=== PATIENT | female | born 1975 | race Hispanic/Latino ===

== ENCOUNTER 2021-03-08 06:25 | Day surgery (SDC) | payer OTHER ==
[2021-03-04 16:13] VITALS: BP 119/60
[2021-03-04 16:32] LABS: BASOPHILS % (AUTO) 0.3 % (0.0-5.0); EOSINOPHILS % (AUTO) 2.3 % (0.0-8.0); HEMATOCRIT 34.8 % (36-48); LYMPHOCYTES % (AUTO) 28.5 % (21.0-51.0); MEAN CORPUSCULAR VOLUME 87.9 fL (79-99); MONOCYTES % (AUTO) 7.2 % (3.0-13.0); NEUTROPHILS % (AUTO) 61.3 % (40.0-77.0); PLATELET COUNT (AUTO) 189 K/uL (130-400); RED BLOOD CELL COUNT(AUTO) 3.96 MIL/uL (4.00-5.50); RED CELL DISTRIBUTION WIDTH 13.5 % (11.0-15.5); WHITE BLOOD COUNT (AUTO) 7.2 K/uL (4.8-10.8)
[2021-03-08] VITALS (17 sets, daily range): BP systolic 102–120; BP diastolic 66–79
[~2021-03-08] VITALS: Ht 160 cm; Wt 69.4 kg
[~2021-03-08 06:25] MED LIST: LACTATED RINGERS 1000ML 1,000 ML IV SCH
[2021-03-08] MEDS ORDERED: SUCCINYLCHOLINE 200MG/10ML SYR ONE (08:37)
[2021-03-08] MEDS ORDERED: LIDOCAINE PF 100MG/5ML (2%) SYRINGE 5ML ONE (08:37)
[2021-03-08] MEDS ORDERED: ROCURONIUM 10MG/1ML SYR 10 MG/ML ML ONE (08:38)
[2021-03-08] MEDS ORDERED: ONDANSETRON 4MG INJ ONE ×2 (08:38→10:05)
[2021-03-08] MEDS ORDERED: PROPOFOL 10 MG/ML 20ML VIAL IV ONE (08:38)
[2021-03-08] MEDS ORDERED: MIDAZOLAM HCL 1 MG/ML 2ML VIAL ONE (08:38)
[2021-03-08] MEDS ORDERED: FENTANYL CITRATE PF 50 MCG/1 ML 2ML VIAL ONE (08:38)
[2021-03-08] MEDS ORDERED: MEPERIDINE-PF 25 MG/ML SYG ONE (09:44)
[2021-03-08] MEDS ORDERED: METOCLOPRAMIDE 10 MG/2 ML VIAL ONE (10:54)
== END 2021-03-08 11:45 | disposition home or self-care (01) ==
LOC: DAH 06:25
PROVIDERS: ATTEND Obstetrics & Gynecology
DX: N84.1 Polyp of cervix uteri (principal); Z20.822 Contact with and (suspected) exposure to COVID-19; L72.0 Epidermal cyst; Z79.899 Other long term (current) drug therapy; Z98.890 Other specified postprocedural states
CPT/HCPCS: 11422; 36415 ×2; 57520; 84703; 85025; 86850 ×2; 86900 ×2; 86901 ×2; 87635; A4215; A4221; A4222; A4223; A4351; A4649; A4663; A6260; C9803; J0330; J2001; J2175; J2250; J2405 ×2; J2704; J2765; J3010; J7120